=== PATIENT | female | born 1980 | race Caucasian/White ===

== ENCOUNTER 2017-07-05 16:21 | Emergency (ER) | payer OTHER ==
[2017-07-05 16:52] VITALS: BP 129/76
== END 2017-07-05 19:56 | disposition home or self-care (01) ==
LOC: ED 16:21
DX: J02.9 Acute pharyngitis, unspecified (principal)
CPT/HCPCS: J1100; J1885

== ENCOUNTER 2017-07-08 11:25 | Emergency (ER) | payer OTHER ==
[~2017-07-08] VITALS: Ht 152.4 cm; Wt 85.3 kg
[2017-07-08 13:48] LABS: BASOPHIL % 0.3 % (0-2); PLATELET COUNT 195 x10^3mcL (130-400); RED CELL DISTRIBUTION WIDTH 12.6 % (11.5-14.5)
[2017-07-08 14:01] LABS: CALCIUM 9.4 mg/dL (8.5-10.1); CARBON DIOXIDE 26.3 mmol/L (21-32); CHLORIDE SERUM 104 mmol/L (98-107); CREATININE SERUM 0.7 mg/dL (0.6-1.0); GFR1 > 60 mL/min; GLUCOSE SERUM 96 mg/dL (74-106); POTASSIUM SERUM 3.6 mmol/L (3.5-5.1); SODIUM SERUM 140 mmol/L (136-145)
[2017-07-08 14:06] LABS: ALBUMIN 4.1 g/dL (3.4-5.0); ALKALINE PHOSPHATASE 67 U/L (46-116); ALT/SGPT 59 U/L (14-59); AST/SGOT 20 U/L (15-37); BILIRUBIN TOTAL 0.8 mg/dL (0.20-1.00); CHOLESTEROL 153 mg/dL (<200); CHOLESTEROL/HDL RATIO 3.6; HDL CHOLESTEROL 42 mg/dL (40-60); LIPASE 252 IU/L (73-393); TRIGLYCERIDES 151 mg/dL (<150)
[2017-07-08 14:08] LABS: TOTAL PROTEIN, SERUM 8.9 g/dL (6.4-8.2)
[2017-07-08 14:10] LABS: T3 TOTAL 0.97 ng/mL
[2017-07-08 14:17] LABS: FREE T4 1.29 ng/dL (0.76-1.46); FREE THYROXINE INDEX 3.2 ug/dL (1.4-4.5); T4(THYROXINE) 8.3 ug/dL (4.7-13.3)
[2017-07-08 15:50] VITALS: BP 139/87
== END 2017-07-08 15:50 | disposition home or self-care (01) ==
LOC: ED 11:25
PROVIDERS: Specialist
DX: F41.9 Anxiety disorder, unspecified (principal); R06.4 Hyperventilation
CPT/HCPCS: 36415; 83880; 84439; Q0092

== ENCOUNTER 2017-11-10 18:35 | Emergency (ER) | payer OTHER ==
[~2017-11-10] VITALS: Ht 152.4 cm; Wt 87.1 kg
[2017-11-10 19:23] VITALS: Ht 152.4 cm; Wt 87.1 kg
[2017-11-10 21:23] VITALS: BP 114/53
== END 2017-11-10 21:23 | disposition home or self-care (01) ==
LOC: ED 18:35
DX: E03.9 Hypothyroidism, unspecified (principal); M79.1 Myalgia

== ENCOUNTER 2019-01-10 16:50 | Emergency (ER) | payer OTHER ==
[~2019-01-10] VITALS: Ht 152.4 cm; Wt 93.0 kg
[2019-01-10 17:02] VITALS: BP 157/90; Ht 152.4 cm; Wt 93.0 kg
[2019-01-10 17:54] LABS: BASOPHIL % 0.5 % (0-2)
[2019-01-10 18:02] LABS: CALCIUM 8.8 mg/dL (8.5-10.1); CARBON DIOXIDE 28.2 mmol/L (21-32); CHLORIDE SERUM 105 mmol/L (98-107); CREATININE SERUM 0.6 mg/dL (0.6-1.0); GFR1 > 60 mL/min; GLUCOSE SERUM 95 mg/dL (74-106); POTASSIUM SERUM 3.8 mmol/L (3.5-5.1); SODIUM SERUM 141 mmol/L (136-145)
[2019-01-10 18:03] LABS: PLATELET COUNT 211 x10^3mcL (130-400)
== END 2019-01-10 18:24 | disposition home or self-care (01) ==
LOC: ED 16:50
PROVIDERS: Emergency Medicine
DX: J32.9 Chronic sinusitis, unspecified (principal); J45.909 Unspecified asthma, uncomplicated
CPT/HCPCS: 36415

== ENCOUNTER 2019-01-25 19:31 | Emergency (ER) | payer OTHER ==
[2019-01-25 22:12] VITALS: BP 134/76
== END 2019-01-25 22:12 | disposition home or self-care (01) ==
LOC: ED 19:31
DX: R42 Dizziness and giddiness (principal); J45.909 Unspecified asthma, uncomplicated; E78.00 Pure hypercholesterolemia, unspecified
CPT/HCPCS: Q0092

== ENCOUNTER 2019-06-24 17:01 | Emergency (ER) | payer OTHER ==
[~2019-06-24] VITALS: Ht 152.4 cm; Wt 90.3 kg
[2019-06-24 17:05] VITALS: Ht 152.4 cm; Wt 90.3 kg
[2019-06-24 17:50] VITALS: BP 131/78
[2019-06-24 18:07] LABS: BASOPHIL % 0.8 % (0-2); RED CELL DISTRIBUTION WIDTH 12.2 % (11.5-14.5)
[2019-06-24 18:12] LABS: PLATELET COUNT 127 x10^3mcL (130-400)
[2019-06-24 18:19] LABS: CARBON DIOXIDE 24.8 mmol/L (21-32); CHLORIDE SERUM 106 mmol/L (98-107); CREATININE SERUM 0.6 mg/dL (0.6-1.0); GFR1 > 60 mL/min; GLUCOSE SERUM 88 mg/dL (74-106); POTASSIUM SERUM 3.4 mmol/L (3.5-5.1); SODIUM SERUM 142 mmol/L (136-145)
[2019-06-24 18:22] LABS: ALBUMIN 3.9 g/dL (3.4-5.0); ALKALINE PHOSPHATASE 64 U/L (46-116); ALT/SGPT 33 U/L (14-59); AST/SGOT 24 U/L (15-37); BILIRUBIN TOTAL 0.9 mg/dL (0.20-1.00); CHOLESTEROL 158 mg/dL (<200); CHOLESTEROL/HDL RATIO 3.9; HDL CHOLESTEROL 41 mg/dL (40-60); LIPASE 194 IU/L (73-393); TRIGLYCERIDES 128 mg/dL (<150)
[2019-06-24 18:23] LABS: TOTAL PROTEIN, SERUM 8.6 g/dL (6.4-8.2)
[2019-06-24 18:34] LABS: FREE T4 1.08 ng/dL (0.76-1.46); FREE THYROXINE INDEX 2.3 ug/dL (1.4-4.5); T4(THYROXINE) 6.6 ug/dL (4.7-13.3)
[2019-06-24 18:39] LABS: T3 TOTAL 1.24 ng/mL
[2019-06-24 19:31] LABS: UA SPECIFIC GRAVITY 1.025 (1.005-1.035); microscopic required? YES; urine erythrocyte TRACE (NEGATIVE)
== END 2019-06-24 19:59 | disposition home or self-care (01) ==
LOC: ED 17:01
PROVIDERS: Specialist
DX: R10.816 Epigastric abdominal tenderness (principal); R10.11 Right upper quadrant pain; R10.12 Left upper quadrant pain; R11.0 Nausea; Z98.890 Other specified postprocedural states
CPT/HCPCS: 36415; 84439; J1885; Q0092

== ENCOUNTER 2019-07-01 21:04 | Emergency (ER) | payer OTHER ==
[~2019-07-01] VITALS: Ht 152.4 cm; Wt 90.3 kg
[2019-07-01 21:25] VITALS: Ht 152.4 cm; Wt 90.3 kg
[2019-07-02 00:27] VITALS: BP 116/58
== END 2019-07-02 00:27 | disposition home or self-care (01) ==
LOC: ED 21:04
DX: K29.70 Gastritis, unspecified, without bleeding (principal); R07.89 Other chest pain; Z98.890 Other specified postprocedural states
CPT/HCPCS: J1885; Q0162

== ENCOUNTER 2019-07-18 20:01 | Emergency (ER) | payer OTHER ==
[~2019-07-18] VITALS: Ht 160 cm; Wt 88.0 kg
[2019-07-18 20:13] VITALS: Ht 160 cm; Wt 88.0 kg
[2019-07-18 20:33] LABS: BASOPHIL % 0.5 % (0-2); PLATELET COUNT 186 x10^3mcL (130-400); RED CELL DISTRIBUTION WIDTH 12.1 % (11.5-14.5)
[2019-07-18 20:39] LABS: CALCIUM 8.9 mg/dL (8.5-10.1); CARBON DIOXIDE 31.3 mmol/L (21-32); CHLORIDE SERUM 104 mmol/L (98-107); CREATININE SERUM 0.7 mg/dL (0.6-1.0); GFR1 > 60 mL/min; GLUCOSE SERUM 121 mg/dL (74-106); POTASSIUM SERUM 3.7 mmol/L (3.5-5.1); SODIUM SERUM 140 mmol/L (136-145)
[2019-07-18 20:43] LABS: ALBUMIN 3.6 g/dL (3.4-5.0); ALKALINE PHOSPHATASE 76 U/L (46-116); ALT/SGPT 39 U/L (14-59); AST/SGOT 20 U/L (15-37); BILIRUBIN TOTAL 0.65 mg/dL (0.20-1.00); LIPASE 183 IU/L (73-393); TOTAL PROTEIN, SERUM 8.1 g/dL (6.4-8.2)
[2019-07-18 23:04] VITALS: BP 131/80
== END 2019-07-18 23:04 | disposition home or self-care (01) ==
LOC: ED 20:01
DX: K29.70 Gastritis, unspecified, without bleeding (principal); K59.00 Constipation, unspecified; R03.0 Elevated blood-pressure reading, without diagnosis of hypertension; Z98.890 Other specified postprocedural states
CPT/HCPCS: 36415

== ENCOUNTER 2019-08-26 22:09 | Emergency (ER) | payer OTHER ==
[~2019-08-26] VITALS: Ht 160 cm; Wt 85.3 kg
[2019-08-26 22:29] VITALS: Ht 160 cm; Wt 85.3 kg
[2019-08-27 00:07] VITALS: BP 130/80
== END 2019-08-27 00:07 | disposition home or self-care (01) ==
LOC: ED 22:09
DX: K60.2 Anal fissure, unspecified (principal)

== ENCOUNTER 2019-10-06 12:32 | Emergency (ER) | payer OTHER ==
[~2019-10-06] VITALS: Ht 152.4 cm; Wt 83.0 kg
[2019-10-06 12:35] VITALS: BP 139/78; Ht 152.4 cm; Wt 83.0 kg
== END 2019-10-06 13:48 | disposition home or self-care (01) ==
LOC: ED 12:32
DX: S29.012A Strain of muscle and tendon of back wall of thorax, initial encounter (principal); V49.9XXA Car occupant (driver) (passenger) injured in unspecified traffic accident, initial encounter; Y93.89 Activity, other specified; Y92.89 Other specified places as the place of occurrence of the external cause; Y99.8 Other external cause status

== ENCOUNTER 2019-10-21 12:11 | Emergency (ER) | payer OTHER ==
[~2019-10-21] VITALS: Ht 152.4 cm; Wt 84.8 kg
[2019-10-21 12:50] VITALS: Ht 152.4 cm; Wt 84.8 kg
[2019-10-21 16:29] VITALS: BP 137/95
== END 2019-10-21 16:29 | disposition home or self-care (01) ==
LOC: ED 12:11
DX: S46.911A Strain of unspecified muscle, fascia and tendon at shoulder and upper arm level, right arm, initial encounter (principal); M54.5 Low back pain; Z98.890 Other specified postprocedural states; X58.XXXA Exposure to other specified factors, initial encounter; Y93.89 Activity, other specified; Y92.89 Other specified places as the place of occurrence of the external cause; Y99.8 Other external cause status
CPT/HCPCS: J1885

== ENCOUNTER 2020-01-12 12:58 | Observation (INO) | payer OTHER ==
[~2020-01-12] VITALS: Ht 152.4 cm; Wt 84.4 kg
[2020-01-12 13:07] VITALS: Ht 152.4 cm; Wt 84.4 kg
[2020-01-12 13:43] LABS: microscopic required? NO
[2020-01-12 14:19] LABS: urine erythrocyte NEGATIVE (NEGATIVE)
[2020-01-12 14:23] LABS: BASOPHIL % 0.4 % (0-2); PLATELET COUNT 199 x10^3mcL (130-400); RED CELL DISTRIBUTION WIDTH 12.1 % (11.5-14.5)
[2020-01-12 14:24] LABS: ALBUMIN 3.8 g/dL (3.4-5.0); ALKALINE PHOSPHATASE 86 U/L (46-116); ALT/SGPT 33 U/L (14-59); AST/SGOT 18 U/L (15-37); CARBON DIOXIDE 20.5 mmol/L (21-32); CHLORIDE SERUM 105 mmol/L (98-107); CHOLESTEROL 171 mg/dL (<200); CREATININE SERUM 0.7 mg/dL (0.6-1.0); GFR1 > 60 mL/min; GLUCOSE SERUM 101 mg/dL (74-106); HDL CHOLESTEROL 47 mg/dL (40-60); LIPASE 177 IU/L (73-393); SODIUM SERUM 138 mmol/L (136-145); T4(THYROXINE) 4.9 ug/dL (4.7-13.3)
[2020-01-12 14:42] LABS: AMPHETAMINE QUAL UR NONE DETECTED (See below)
[2020-01-12 15:16] LABS: TOTAL PROTEIN, SERUM 8.5 g/dL (6.4-8.2)
[2020-01-12 18:19] VITALS: BP 146/83
[2020-01-12 19:25] VITALS: BP 126/80
[2020-01-13 06:11] VITALS: BP 120/73
[2020-01-13 06:13] LABS: BASOPHIL % 0.1 % (0-2); PLATELET COUNT 171 x10^3mcL (130-400)
[2020-01-13 06:44] LABS: CALCIUM 8.2 mg/dL (8.5-10.1); CARBON DIOXIDE 27.3 mmol/L (21-32); CHLORIDE SERUM 107 mmol/L (98-107); CREATININE SERUM 0.6 mg/dL (0.6-1.0); GFR1 > 60 mL/min; GLUCOSE SERUM 85 mg/dL (74-106); MAGNESIUM 2.1 mg/dL (1.8-2.4); POTASSIUM SERUM 3.7 mmol/L (3.5-5.1); SODIUM SERUM 142 mmol/L (136-145)
[2020-01-13 07:52] VITALS: BP 101/55
[2020-01-13 12:40] VITALS: BP 106/66
[2020-01-13] MEDS ORDERED: XANAX0.5 MG PO (13:57)
[2020-01-13 15:23] VITALS: BP 106/66
[2020-01-13 16:00] VITALS: BP 128/84
== END 2020-01-13 16:49 | disposition home or self-care (01) ==
LOC: ED 12:58 → DU 17:19
PROVIDERS: Emergency Medicine; ADMIT Internal Medicine Pulmonary Disease
DX: R07.2 Precordial pain (principal); F41.9 Anxiety disorder, unspecified; F41.0 Panic disorder [episodic paroxysmal anxiety]; Z83.3 Family history of diabetes mellitus
CPT/HCPCS: 83880; G0378; J1885; J2060; J7030; Q0092

== ENCOUNTER 2020-01-18 00:22 | Emergency (ER) | payer OTHER ==
[~2020-01-18] VITALS: Ht 160 cm; Wt 89.5 kg
[~2020-01-18 00:22] MED LIST: XANAX0.5 MG PO
[2020-01-18 00:32] VITALS: Ht 160 cm; Wt 89.5 kg
[2020-01-18 01:40] VITALS: BP 130/70
== END 2020-01-18 01:39 | disposition home or self-care (01) ==
LOC: ED 00:22
DX: K59.00 Constipation, unspecified (principal)
CPT/HCPCS: J1885; Q0092

== ENCOUNTER 2020-03-29 15:48 | Emergency (ER) | payer OTHER ==
[~2020-03-29] VITALS: Ht 152.4 cm; Wt 83.5 kg
[2020-03-29 15:54] VITALS: BP 138/91; Ht 152.4 cm; Wt 83.5 kg
== END 2020-03-29 16:49 | disposition home or self-care (01) ==
LOC: ED 15:48
DX: M54.2 Cervicalgia (principal); G89.29 Other chronic pain; F41.9 Anxiety disorder, unspecified; H60.91 Unspecified otitis externa, right ear
CPT/HCPCS: J1885

== ENCOUNTER 2020-03-30 19:49 | Emergency (ER) | payer OTHER ==
[~2020-03-30] VITALS: Ht 152.4 cm; Wt 82.6 kg
[2020-03-30 22:33] VITALS: BP 129/83
== END 2020-03-30 22:33 | disposition home or self-care (01) ==
LOC: ED 19:49
DX: F41.9 Anxiety disorder, unspecified (principal); I10 Essential (primary) hypertension

== ENCOUNTER 2020-06-26 11:56 | Emergency (ER) | payer OTHER ==
[~2020-06-26] VITALS: Ht 152.4 cm; Wt 80.7 kg
[2020-06-26 12:12] VITALS: Ht 152.4 cm; Wt 80.7 kg
[2020-06-26 12:55] VITALS: BP 124/82
== END 2020-06-26 12:55 | disposition home or self-care (01) ==
LOC: ED 11:56
DX: M54.5 Low back pain (principal); M54.2 Cervicalgia; I10 Essential (primary) hypertension; Z98.890 Other specified postprocedural states

== ENCOUNTER 2020-10-15 10:52 | Emergency (ER) | payer OTHER, SELFPAY ==
[~2020-10-15] VITALS: Ht 170.2 cm; Wt 68.0 kg
[2020-10-15 11:48] VITALS: BP 131/87; Ht 170.2 cm; Wt 68.0 kg
== END 2020-10-15 12:32 | disposition home or self-care (01) ==
LOC: ED 10:52
DX: U07.1 COVID-19 (principal); I10 Essential (primary) hypertension; Z98.890 Other specified postprocedural states